=== PATIENT | male | born 1980 | race Caucasian/White ===

== ENCOUNTER 2025-03-17 13:39 | Inpatient (IN) | payer MEDICAID ==
[~2025-03-17] VITALS: Ht 188 cm; Wt 69.7 kg
[~2025-03-17 13:39] MED LIST: CLON-595 PO; LEVO50 PO; LORA1TAB25 PO; PANT-31 PO; QUET25TA PO; SEVE800T39 PO
[2025-03-17 22:20] VITALS: BP 120/85; PULSE 107; RESP 18; TEMP 97.8; O2SAT 96
[2025-03-17] MEDS: ZOLPIDEM TARTRATE 10 MG TABLET PO PRN (23:55)
[2025-03-17] MEDS: OLANZapine 5 MG RAPDIS TABLET PO PRN (23:55)
[2025-03-18] VITALS (11 sets, daily range): BP systolic 111–133; BP diastolic 78–85; PULSE 79–100; RESP 16–18; TEMP 98–99.7; O2SAT 95–98
[2025-03-18 09:40] LABS: CHOL/HDL RATIO 5.9 (4.2-7.3); LDL CHOL (CALC.) 129.0 mg/dL (0-130)
[2025-03-18] MEDS ORDERED: LOPERAMIDE HCL 2 MG CAPSULE PO PRN (14:15)
[2025-03-18] MEDS ORDERED: GABAPENTIN 300 MG CAPSULE PO PRN (14:15)
[2025-03-18] MEDS ORDERED: MELATONIN 5 MG TABLET PO PRN (14:15)
[2025-03-18] MEDS ORDERED: MAGNESIUM HYDROXIDE SUSPENSION 30 ML UDCUP PO PRN (14:15)
[2025-03-18] MEDS ORDERED: MAG HYDROX/ALUMINUM HYD/SIMETH ES 30 ML SUSPENSION UDCUP PO PRN (14:15)
[2025-03-18] MEDS ORDERED: GuaiFENesin/D-METHORPHAN [SUGAR-FREE] 200-20MG/10 ML SYRUP UDCUP PO PRN (14:15)
[2025-03-18] MEDS: TUBERCULIN, PURIFIED PROTEIN DERIVATIVE 5 TU/0.1 ML SYRINGE ID ONE (14:15)
[2025-03-18] MEDS ORDERED: PROMETHAZINE HCL 25 MG TABLET PO PRN (14:15)
[2025-03-18] MEDS: THIAMINE 100 MG TABLET PO SCH (17:29)
[2025-03-18] MEDS: ACAMPROSATE CALCIUM 333 MG DR TABLET PO SCH (17:29)
[2025-03-18] MEDS: LURASIDONE HCL 40 MG TABLET PO SCH (17:29)
[2025-03-18] MEDS: GABAPENTIN 400 MG CAPSULE PO SCH (17:29)
[2025-03-19] VITALS (12 sets, daily range): BP systolic 94–134; BP diastolic 62–85; PULSE 89–100; RESP 17–19; TEMP 97.6–99.1; O2SAT 97–100
[2025-03-19] MEDS: FOLIC ACID 1 MG TABLET PO SCH (09:25)
[2025-03-19] MEDS: DULoxetine HCL 20 MG CAPSULE PO SCH (09:25)
[2025-03-19] MEDS: MULTIVITAMINS WITH MINERALS, THERAPEUTIC TABLET PO SCH (09:25)
[2025-03-19] MEDS: ETHYL ALCOHOL 62% ANTISEPTIC NASAL SANITIZER 0.6 ML AMPUL NASAL SCH (09:26)
[2025-03-19] MEDS: SEVELAMER CARBONATE 800 MG TABLET PO SCH (12:05)
[2025-03-20] MEDS: LEVOTHYROXINE SODIUM 50 MCG TABLET PO SCH (06:40)
[2025-03-20 12:48] VITALS: BP 110/68; PULSE 96; RESP 18; TEMP 98.6; O2SAT 97
[2025-03-20 12:53] VITALS: BP 110/68; PULSE 96; RESP 18; TEMP 98.6; O2SAT 97
[2025-03-20 22:16] VITALS: BP 123/82; PULSE 93; RESP 18; TEMP 98.6; O2SAT 97
[2025-03-21] VITALS (11 sets, daily range): BP systolic 95–137; BP diastolic 58–79; PULSE 80–103; RESP 18–19; TEMP 97.7–98.9; O2SAT 97
[2025-03-21] MEDS: EPOETIN ALFA 10,000 UNITS/ML VIAL SQ SCH (09:00)
[2025-03-21] MEDS ORDERED: DEXTROSE 50%-WATER 25 GM/50 ML SYRINGE IVP PRN (11:45)
[2025-03-21] MEDS: GABAPENTIN 300 MG CAPSULE PO SCH (13:00)
[2025-03-21 16:31] LABS: GLUCOMETER DEV NAME(LOC) 3EX.2; GLUCOSE,POINT OF CARE 118 MG/DL (70-110)
[2025-03-21] MEDS: LURASIDONE HCL 60 MG TABLET PO SCH (17:35)
[2025-03-21] MEDS: INSULIN LISPRO 100 UNITS/ML SQ PRN (18:11)
[2025-03-21 20:16] LABS: GLUCOMETER DEV NAME(LOC) 3EX.2; GLUCOSE,POINT OF CARE 101 MG/DL (70-110)
[2025-03-22 06:06] LABS: GLUCOMETER DEV NAME(LOC) 3EX.2; GLUCOSE,POINT OF CARE 108 MG/DL (70-110)
[2025-03-22] MEDS: DULoxetine HCL 30 MG CAPSULE PO SCH (08:44)
[2025-03-22 11:09] VITALS: BP 104/67; PULSE 92; RESP 17; TEMP 98.8; O2SAT 97
[2025-03-22 11:25] LABS: GLUCOMETER DEV NAME(LOC) 3EX.2; GLUCOSE,POINT OF CARE 106 MG/DL (70-110)
[2025-03-22 11:48] LABS: PLATELET COUNT (AUTO) 527 K/uL (150-450); RED BLOOD CELL COUNT(AUTO) 3.40 MIL/uL (4.50-5.90); RED CELL DISTRIBUTION WIDTH 16.4 % (11.5-14.5); WHITE BLOOD COUNT (AUTO) 11.5 K/uL (4.5-11.0)
[2025-03-22 11:56] LABS: CALCIUM, TOTAL 8.3 mg/dL (8.8-10.5); CREATININE 4.11 mg/dL (0.60-1.30); GLOMERULAR FILTR. RATE CALC 16.0 mL/min (>60); GLUCOSE,RANDOM 102.0 mg/dL (70-110); SODIUM SERUM 132.0 mmol/L (136-145); UREA NITROGEN, BLOOD 48.0 mg/dL (7-18)
[2025-03-22 11:59] LABS: PHOSPHORUS 7.0 mg/dL (2.5-4.9)
[2025-03-22] MEDS: SODIUM ZIRCONIUM CYCLOSILICATE 10 GM POWDER PACKET PO ONE (13:25)
[2025-03-22 17:16] LABS: GLUCOMETER DEV NAME(LOC) 3EX.2; GLUCOSE,POINT OF CARE 114 MG/DL (70-110)
[2025-03-22 20:46] LABS: GLUCOMETER DEV NAME(LOC) 3EX.2; GLUCOSE,POINT OF CARE 94 MG/DL (70-110)
[2025-03-22 22:42] VITALS: BP 114/72; PULSE 86; RESP 18; TEMP 98.7; O2SAT 97
[2025-03-23] VITALS (11 sets, daily range): BP systolic 88–140; BP diastolic 52–82; PULSE 68–102; RESP 18–19; TEMP 98.1–98.5; O2SAT 97–98
[2025-03-23 06:36] LABS: GLUCOMETER DEV NAME(LOC) 3EX.2; GLUCOSE,POINT OF CARE 84 MG/DL (70-110)
[2025-03-23] MEDS: DULoxetine HCL 20 MG CAPSULE PO SCH (08:25)
[2025-03-23 17:10] LABS: GLUCOMETER DEV NAME(LOC) 3EX.2; GLUCOSE,POINT OF CARE 122 MG/DL (70-110)
[2025-03-23 20:26] LABS: GLUCOMETER DEV NAME(LOC) 3EX.2; GLUCOSE,POINT OF CARE 89 MG/DL (70-110)
[2025-03-24] VITALS (16 sets, daily range): BP systolic 113–132; BP diastolic 72–80; PULSE 78–101; RESP 17–19; TEMP 97.5–101.5; O2SAT 96–99
[2025-03-24 06:26] LABS: GLUCOMETER DEV NAME(LOC) 3EX.2; GLUCOSE,POINT OF CARE 88 MG/DL (70-110)
[2025-03-24 11:31] LABS: GLUCOMETER DEV NAME(LOC) 3EX.2; GLUCOSE,POINT OF CARE 93 MG/DL (70-110)
[2025-03-24 16:36] LABS: GLUCOMETER DEV NAME(LOC) 3EX.2; GLUCOSE,POINT OF CARE 105 MG/DL (70-110)
[2025-03-24 20:31] LABS: GLUCOMETER DEV NAME(LOC) 3EX.2; GLUCOSE,POINT OF CARE 105 MG/DL (70-110)
[2025-03-24] MEDS: ACETAMINOPHEN 325 MG TABLET PO PRN (21:54)
[2025-03-24 22:41] LABS: COVID AG,FIA SOURCE NASAL SWAB
[2025-03-24 23:01] LABS: SARS-COV2 (COVID) ANTIGEN,FIA Negative (Negative)
[2025-03-25 01:08] VITALS: BP 112/78; PULSE 87; RESP 18; TEMP 98.4; O2SAT 97
[2025-03-25 01:25] LABS: GLUCOMETER DEV NAME(LOC) 3EX.2; GLUCOSE,POINT OF CARE 91 MG/DL (70-110)
[2025-03-25] MEDS ORDERED: GABAPENTIN 400 MG CAPSULE PO SCH (09:00)
[2025-03-25] MEDS ORDERED: GABAPENTIN 300 MG CAPSULE PO SCH (09:00)
[2025-03-25] MEDS ORDERED: DULoxetine HCL 60 MG CAPSULE PO SCH (09:00)
[2025-03-25] MEDS ORDERED: LURASIDONE HCL 80 MG TABLET PO SCH (17:30)
== END 2025-03-25 02:42 | disposition short-term general hospital (02) | DRG 761 ==
LOC: 3EI 22:37
PROVIDERS: ADMIT Psychiatry & Neurology Psychiatry; ATTEND Psychiatry & Neurology Psychiatry
PROC: GZHZZZZ Group Psychotherapy (ICD-10-PCS; 2025-03-18)
PROC: GZ58ZZZ Individual Psychotherapy, Cognitive-Behavioral (ICD-10-PCS; 2025-03-18)
PROC: 5A1D70Z Performance of Urinary Filtration, Intermittent, Less than 6 Hours Per Day (ICD-10-PCS; principal; 2025-03-19)
PROC: 5A1D70Z Performance of Urinary Filtration, Intermittent, Less than 6 Hours Per Day (ICD-10-PCS; 2025-03-21)
PROC: GZ56ZZZ Individual Psychotherapy, Supportive (ICD-10-PCS; 2025-03-21)
PROC: 5A1D70Z Performance of Urinary Filtration, Intermittent, Less than 6 Hours Per Day (ICD-10-PCS; 2025-03-23)
DX: F25.9 Schizoaffective disorder, unspecified (principal); I12.0 Hypertensive chronic kidney disease with stage 5 chronic kidney disease or end stage renal disease; N18.6 End stage renal disease; D63.1 Anemia in chronic kidney disease; R45.851 Suicidal ideations; E03.9 Hypothyroidism, unspecified; E11.22 Type 2 diabetes mellitus with diabetic chronic kidney disease; F17.200 Nicotine dependence, unspecified, uncomplicated; F32.A Depression, unspecified; Z60.8 Other problems related to social environment; K21.9 Gastro-esophageal reflux disease without esophagitis; Z20.822 Contact with and (suspected) exposure to COVID-19; F41.9 Anxiety disorder, unspecified; Z55.9 Problems related to education and literacy, unspecified; Z59.9 Problem related to housing and economic circumstances, unspecified; Z63.9 Problem related to primary support group, unspecified; Z65.3 Problems related to other legal circumstances; Z74.01 Bed confinement status; Z99.2 Dependence on renal dialysis; Z79.899 Other long term (current) drug therapy
CPT/HCPCS: 80048; 80061; 82962; 83036; 83735; 84100; 84439; 84443; 85025; 86592; 87081; 90935; 97110; 97162; 97166; 97530; 97535; J0885

== ENCOUNTER 2025-03-25 01:16 | Inpatient (IN) | payer OTHER ==
[~2025-03-25] VITALS: Ht 188 cm; Wt 71.1 kg
[2025-03-25] VITALS (14 sets, daily range): BP systolic 103–137; BP diastolic 63–84; PULSE 74–92; RESP 18–20; TEMP 97.9–99.5; O2SAT 97–98
[2025-03-25] MEDS ORDERED: ONDANSETRON HCL 4 MG/2 ML VIAL IVP PRN (06:15)
[2025-03-25] MEDS ORDERED: BISACODYL 10 MG RECTAL RECTAL SUPPOSITORY PR PRN (06:15)
[2025-03-25] MEDS: LEVOTHYROXINE SODIUM 50 MCG TABLET PO SCH (06:43)
[2025-03-25] MEDS: PANTOPRAZOLE SODIUM 40 MG DR TABLET PO SCH (09:40)
[2025-03-25] MEDS: SEVELAMER CARBONATE 800 MG TABLET PO SCH (09:40)
[2025-03-25] MEDS: HEPARIN SODIUM,PORCINE 5,000 UNITS/ML VIAL SQ SCH (09:40)
[2025-03-25] MEDS: DOCUSATE SODIUM 100 MG CAPSULE PO SCH (09:40)
[2025-03-25] MEDS ORDERED: SODIUM CHLORIDE 0.9% 1,000 ML ONE (10:54)
[2025-03-25 11:29] LABS: PLATELET COUNT (AUTO) 478 K/uL (150-450); RED BLOOD CELL COUNT(AUTO) 3.10 MIL/uL (4.50-5.90); RED CELL DISTRIBUTION WIDTH 16.4 % (11.5-14.5); WHITE BLOOD COUNT (AUTO) 10.4 K/uL (4.5-11.0)
[2025-03-25 11:43] LABS: CALCIUM, TOTAL 7.9 mg/dL (8.8-10.5); CREATININE 5.25 mg/dL (0.60-1.30); GLOMERULAR FILTR. RATE CALC 12.0 mL/min (>60); GLUCOSE,RANDOM 112.0 mg/dL (70-110); SODIUM SERUM 132.0 mmol/L (136-145); UREA NITROGEN, BLOOD 62.0 mg/dL (7-18)
[2025-03-25] MEDS: *CLINICAL-LEVOFLOXACIN IVPB DOSING CLINICAL ONE (16:53)
[2025-03-25] MEDS: LEVOFLOXACIN 750 MG/D5% WATER 150 ML IV ONE (18:04)
[2025-03-25 19:10] LABS: COVID AG,FIA SOURCE NASAL SWAB
[2025-03-25 19:28] LABS: INFLUENZA TYPE A NEGATIVE FOR TYPE A (NEGATIVE); INFLUENZA TYPE B NEGATIVE FOR TYPE B (NEGATIVE); SARS-COV2 (COVID) ANTIGEN,FIA Negative (Negative)
[2025-03-26] VITALS (18 sets, daily range): BP systolic 101–135; BP diastolic 63–98; PULSE 77–110; RESP 17–19; TEMP 96.8–100.6; O2SAT 97–100
[2025-03-26] MEDS: FOLIC ACID/VIT B COMPLEX AND C TABLET PO SCH (12:21)
[2025-03-26] MEDS: EPOETIN ALFA 10,000 UNITS/ML 2 ML VIAL SQ SCH (14:45)
[2025-03-26] MEDS: ACETAMINOPHEN 325 MG TABLET PO PRN (17:23)
[2025-03-26] MEDS: LORazepam 2 MG/ML VIAL IVP PRN ×2 (18:03→22:43)
[2025-03-26] MEDS: GABAPENTIN 300 MG CAPSULE PO SCH (21:00)
[2025-03-26] MEDS: MELATONIN 5 MG TABLET PO SCH (21:00)
[2025-03-27] MEDS: MORPHINE SULFATE 4 MG/ML SYRINGE IVP PRN (01:45)
[2025-03-27] MEDS: LORazepam 2 MG/ML VIAL IM ONE (03:28)
[2025-03-27 05:56] LABS: PLATELET COUNT (AUTO) 481 K/uL (150-450); RED BLOOD CELL COUNT(AUTO) 3.26 MIL/uL (4.50-5.90); RED CELL DISTRIBUTION WIDTH 16.9 % (11.5-14.5); WHITE BLOOD COUNT (AUTO) 11.0 K/uL (4.5-11.0)
[2025-03-27 06:14] LABS: ASPARTATE AMINOTRANSFERASE 25.0 U/L (15-37); CALCIUM, TOTAL 8.0 mg/dL (8.8-10.5); CREATININE 3.68 mg/dL (0.60-1.30); GLOMERULAR FILTR. RATE CALC 18.0 mL/min (>60); GLUCOSE,RANDOM 88.0 mg/dL (70-110); SODIUM SERUM 135.0 mmol/L (136-145); TOTAL PROTEIN, SERUM 7.4 g/dL (6.4-8.2); UREA NITROGEN, BLOOD 34.0 mg/dL (7-18)
[2025-03-27] MEDS: DULoxetine HCL 60 MG CAPSULE PO SCH (08:21)
[2025-03-27] MEDS: LURASIDONE HCL 80 MG TABLET PO SCH (08:23)
[2025-03-27 09:07] VITALS: BP 124/84; PULSE 83; RESP 17; TEMP 98.2; O2SAT 98
[2025-03-27] MEDS ORDERED: VANCOMYCIN 1GM/WATER(PEG/NADA) 200 ML IV PRN (12:00)
[2025-03-27 12:13] VITALS: BP 95/58; PULSE 85; RESP 18; TEMP 97.9; O2SAT 98
[2025-03-27] MEDS ORDERED: SODIUM CHLORIDE 0.9% 500 ML IV ONE (12:29)
[2025-03-27] MEDS: VANCOMYCIN 1.5 GM/WATER(PEG) 300 ML IV ONE (12:32)
[2025-03-27 16:32] VITALS: BP 86/61; PULSE 75; RESP 18; TEMP 97.7; O2SAT 97
[2025-03-27] MEDS: LEVOFLOXACIN 500 MG/D5% WATER 100 ML IV SCH (17:05)
[2025-03-27 19:50] VITALS: BP 97/63; PULSE 78; RESP 17; TEMP 97.7; O2SAT 98
[2025-03-27 22:24] LABS: APPEARANCE,URINE CLEAR (CLEAR); GLUCOSE, URINE (UA) 300-500 mg/dL (NEGATIVE); LEUKOCYTE ESTERASE ,URINE NEGATIVE (NEGATIVE); NITRATE,URINE NEGATIVE (NEGATIVE); OCCULT BLOOD,URINE TRACE (NEGATIVE); SPECIFIC GRAVITIY, URINE 1.009 (1.003-1.030)
[2025-03-27 22:38] LABS: SULFOSALICYLIC ACID,URINE 4+ (Negative)
[2025-03-27 22:47] LABS: SQUAMOUS EPITHELIAL CELL,UR Rare /LPF (None Seen)
[2025-03-27 23:57] VITALS: BP 100/67; PULSE 81; RESP 18; TEMP 98.2; O2SAT 95
[2025-03-28 02:28] LABS: INFLUENZA A-RTPCR,COMBO NEGATIVE (NEGATIVE); INFLUENZA B-RTPCR,COMBO NEGATIVE (NEGATIVE); RESPIRATORY SYNCYTIAL VRS-PCR NEGATIVE (NEGATIVE); SARS COVID19 RTPCR, COMBO NEGATIVE (NEGATIVE)
[2025-03-28 20:10] VITALS: BP 95/60; PULSE 79; RESP 18; TEMP 98.1; O2SAT 100
[2025-03-29] MEDS: ZOLPIDEM TARTRATE 5 MG TABLET PO PRN (02:17)
[2025-03-29] MEDS ORDERED: SODIUM CHLORIDE 0.9% 1,000 ML ONE ×2 (05:42→05:43)
[2025-03-29 08:30] LABS: PLATELET COUNT (AUTO) 484 K/uL (150-450); RED BLOOD CELL COUNT(AUTO) 2.99 MIL/uL (4.50-5.90); RED CELL DISTRIBUTION WIDTH 16.8 % (11.5-14.5); WHITE BLOOD COUNT (AUTO) 8.1 K/uL (4.5-11.0)
[2025-03-29 08:43] VITALS: BP 90/60; PULSE 69; RESP 18; TEMP 97.7; O2SAT 97
[2025-03-29 08:44] LABS: CALCIUM, TOTAL 8.0 mg/dL (8.8-10.5); CREATININE 5.74 mg/dL (0.60-1.30); GLOMERULAR FILTR. RATE CALC 11.0 mL/min (>60); GLUCOSE,RANDOM 85.0 mg/dL (70-110); SODIUM SERUM 136.0 mmol/L (136-145); UREA NITROGEN, BLOOD 69.0 mg/dL (7-18)
[2025-03-29] MEDS: MIDODRINE HCL 5 MG TABLET PO ONE (08:45)
[2025-03-29 11:37] VITALS: BP 88/60; PULSE 72; RESP 17; TEMP 97.1; O2SAT 99
[2025-03-29] MEDS: VANCOMYCIN 1GM/WATER(PEG/NADA) 200 ML IV ONE (15:01)
[2025-03-29 16:10] VITALS: BP 95/70; PULSE 79; RESP 18; TEMP 97.5; O2SAT 100
[2025-03-29 20:40] VITALS: BP 104/65; PULSE 83; RESP 18; TEMP 98.2; O2SAT 100
[2025-03-29] MEDS: MIDODRINE HCL 5 MG TABLET PO SCH (21:10)
[2025-03-29] MEDS: HYDROCODONE/ACETAMINOPHEN 5-325 MG TABLET PO PRN (21:30)
[2025-03-30] VITALS (19 sets, daily range): BP systolic 85–109; BP diastolic 54–78; PULSE 66–83; RESP 17–19; TEMP 96.6–98.1; O2SAT 93–100
[2025-03-30 06:30] LABS: PLATELET COUNT (AUTO) 561 K/uL (150-450); RED BLOOD CELL COUNT(AUTO) 3.21 MIL/uL (4.50-5.90); RED CELL DISTRIBUTION WIDTH 16.6 % (11.5-14.5); WHITE BLOOD COUNT (AUTO) 9.5 K/uL (4.5-11.0)
[2025-03-30 06:52] LABS: CREATININE 6.59 mg/dL (0.60-1.30); GLOMERULAR FILTR. RATE CALC 9.0 mL/min (>60); GLUCOSE,RANDOM 82.0 mg/dL (70-110); SODIUM SERUM 135.0 mmol/L (136-145); UREA NITROGEN, BLOOD 79.0 mg/dL (7-18)
[2025-03-30 06:56] LABS: CALCIUM, TOTAL 8.1 mg/dL (8.8-10.5)
[2025-03-30] MEDS ORDERED: ALBUMIN HUMAN 25%-12.5GM/50ML IV BOTTLE ONE (12:00)
[2025-03-30] MEDS: ALBUMIN HUMAN 25%-25GM/100ML 100 ML IV ONE ×2 (12:30→17:51)
[2025-03-30] MEDS: CALCIUM GLUCONATE 100 MG/ML 10 ML IVP ONE (13:57)
[2025-03-30] MEDS: SODIUM ZIRCONIUM CYCLOSILICATE 10 GM POWDER PACKET PO ONE (13:58)
[2025-03-30] MEDS ORDERED: SODIUM CHLORIDE 0.9% 2,000 ML ONE (14:06)
[2025-03-30] MEDS: INSULIN REGULAR, HUMAN 100 UNITS/ML IVP ONE (14:22)
[2025-03-30] MEDS: DEXTROSE 50%-WATER 25 GM/50 ML SYRINGE IVP ONE (14:23)
[2025-03-30 15:30] LABS: GLUCOMETER DEV NAME(LOC) 5S.1E; GLUCOSE,POINT OF CARE 79 MG/DL (70-110)
[2025-03-30 15:54] LABS: LACTIC ACID 0.4 mmol/L (0.4-2.0)
[2025-03-30] MEDS: VANCOMYCIN 500 MG/WATER(PEG) 100 ML IV ONE (19:29)
[2025-03-30] MEDS: PIPERACILLIN SODIUM/TAZOBACTAM 2.25 GM in DEXTROSE 5%-WATER 50 ML IV SCH (21:39)
[2025-03-30] MEDS: LACTULOSE 20 GM/30 ML SOLUTION UDCUP PO SCH (23:44)
[2025-03-31] VITALS (7 sets, daily range): BP systolic 104–141; BP diastolic 63–89; PULSE 81–88; RESP 17–19; TEMP 97.7–98.8; O2SAT 96–99
[2025-03-31 06:39] LABS: PLATELET COUNT (AUTO) 572 K/uL (150-450); RED BLOOD CELL COUNT(AUTO) 3.08 MIL/uL (4.50-5.90); RED CELL DISTRIBUTION WIDTH 16.5 % (11.5-14.5); WHITE BLOOD COUNT (AUTO) 8.3 K/uL (4.5-11.0)
[2025-03-31 06:55] LABS: ASPARTATE AMINOTRANSFERASE 31.0 U/L (15-37); CALCIUM, TOTAL 7.9 mg/dL (8.8-10.5); CREATININE 3.85 mg/dL (0.60-1.30); GLOMERULAR FILTR. RATE CALC 17.0 mL/min (>60); GLUCOSE,RANDOM 115.0 mg/dL (70-110); SODIUM SERUM 136.0 mmol/L (136-145); TOTAL PROTEIN, SERUM 7.2 g/dL (6.4-8.2); UREA NITROGEN, BLOOD 44.0 mg/dL (7-18)
[2025-03-31] MEDS ORDERED: IOHEXOL 350 MG/ML 100 ML VIAL ONE (11:42)
[2025-03-31] MEDS ORDERED: SODIUM CHLORIDE 0.9% 100 ML ONE (11:42)
[2025-03-31] MEDS ORDERED: ALBUMIN HUMAN 25%-12.5GM/50ML IV BOTTLE ONE (12:00)
[2025-04-01] VITALS (15 sets, daily range): BP systolic 91–138; BP diastolic 62–99; PULSE 70–101; RESP 16–18; TEMP 97.6–99.3; O2SAT 98–100
[2025-04-01] MEDS ORDERED: SODIUM CHLORIDE 0.9% 2,000 ML ONE (03:59)
[2025-04-01] MEDS: ALBUMIN HUMAN 25%-25GM/100ML 100 ML IV PRN (05:42)
[2025-04-01 07:06] LABS: ASPARTATE AMINOTRANSFERASE 36 U/L (15-37); CALCIUM, TOTAL 7.9 mg/dL (8.8-10.5); CREATININE 0.97 mg/dL (0.60-1.30); GLOMERULAR FILTR. RATE CALC > 60 mL/min (>60); GLUCOSE,RANDOM 85 mg/dL (70-110); SODIUM SERUM 141 mmol/L (136-145); TOTAL PROTEIN, SERUM 6.5 g/dL (6.4-8.2); UREA NITROGEN, BLOOD 22 mg/dL (7-18)
[2025-04-01] MEDS: LURASIDONE HCL 40 MG TABLET PO SCH (08:49)
[2025-04-01 14:34] LABS: PLATELET COUNT (AUTO) 633 K/uL (150-450); RED BLOOD CELL COUNT(AUTO) 3.26 MIL/uL (4.50-5.90); RED CELL DISTRIBUTION WIDTH 17.0 % (11.5-14.5); WHITE BLOOD COUNT (AUTO) 8.3 K/uL (4.5-11.0)
[2025-04-01] MEDS: VANCOMYCIN 500 MG/WATER(PEG) 100 ML IV ONE (14:35)
[2025-04-02 03:26] VITALS: BP 133/76; PULSE 79; RESP 18; TEMP 98.4; O2SAT 98
[2025-04-02 07:20] VITALS: BP 145/90; PULSE 76; RESP 18; TEMP 98; O2SAT 97
[2025-04-02] MEDS ORDERED: SODIUM CHLORIDE 0.9% 250 ML IV ONE (11:56)
[2025-04-02 12:02] VITALS: BP 133/79; PULSE 76; RESP 18; TEMP 98.4; O2SAT 100
[2025-04-02 16:04] VITALS: BP 157/83; PULSE 74; RESP 18; TEMP 98.4; O2SAT 98
[2025-04-02 19:52] VITALS: BP 139/81; PULSE 80; RESP 18; TEMP 98.4; O2SAT 98
[2025-04-02 23:41] VITALS: BP 130/85; PULSE 81; RESP 18; TEMP 97.9; O2SAT 98
[2025-04-03 04:19] VITALS: BP 129/72; PULSE 84; RESP 18; TEMP 97.7; O2SAT 97
[2025-04-03 07:49] VITALS: BP 140/90; PULSE 79; RESP 18; TEMP 98; O2SAT 98
[2025-04-03 12:11] VITALS: BP 136/82; PULSE 74; RESP 18; TEMP 97.7; O2SAT 98
[2025-04-03] MEDS: LORazepam 2 MG/ML VIAL IVP ONE (13:18)
[2025-04-03 15:38] VITALS: BP 128/82; PULSE 82; RESP 18; TEMP 97.7; O2SAT 100
[2025-04-03 20:25] VITALS: BP 132/93; PULSE 85; RESP 16; TEMP 98.4; O2SAT 97
[2025-04-03 23:02] VITALS: BP 136/97; PULSE 90; RESP 18; TEMP 97.7; O2SAT 97
[2025-04-04] VITALS (13 sets, daily range): BP systolic 108–158; BP diastolic 78–100; PULSE 79–102; RESP 18–20; TEMP 97.5–98.1; O2SAT 97–98
[2025-04-04] MEDS: ZOLPIDEM TARTRATE 5 MG TABLET PO PRN (00:05)
[2025-04-04 13:03] LABS: CALCIUM, TOTAL 8.7 mg/dL (8.8-10.5); CREATININE 6.09 mg/dL (0.60-1.30); GLOMERULAR FILTR. RATE CALC 10.0 mL/min (>60); GLUCOSE,RANDOM 121.0 mg/dL (70-110); SODIUM SERUM 135.0 mmol/L (136-145); UREA NITROGEN, BLOOD 66.0 mg/dL (7-18)
[2025-04-04 13:26] LABS: PHOSPHORUS 6.9 mg/dL (2.5-4.9)
[2025-04-04] MEDS: CALCIUM GLUCONATE 100 MG/ML 10 ML IVP ONE (13:55)
[2025-04-04] MEDS: DEXTROSE 50%-WATER 25 GM/50 ML SYRINGE IVP ONE (13:57)
[2025-04-04] MEDS: SODIUM ZIRCONIUM CYCLOSILICATE 10 GM POWDER PACKET PO ONE (13:57)
[2025-04-04] MEDS: INSULIN REGULAR, HUMAN 100 UNITS/ML IVP ONE (14:00)
[2025-04-04] MEDS: SODIUM POLYSTYRENE SULFONATE 15 GM/60 ML SUSPENSION BOTTLE PO ONE (15:34)
[2025-04-04 17:06] LABS: CALCIUM, TOTAL 8.4 mg/dL (8.8-10.5); CREATININE 5.06 mg/dL (0.60-1.30); GLOMERULAR FILTR. RATE CALC 12.0 mL/min (>60); GLUCOSE,RANDOM 88.0 mg/dL (70-110); SODIUM SERUM 135.0 mmol/L (136-145); UREA NITROGEN, BLOOD 55.0 mg/dL (7-18)
[2025-04-04 20:01] LABS: GLUCOMETER DEV NAME(LOC) 6N.1C; GLUCOSE,POINT OF CARE 134 MG/DL (70-110)
[2025-04-05] VITALS (9 sets, daily range): BP systolic 117–156; BP diastolic 79–97; PULSE 84–99; RESP 17–18; TEMP 96.8–98.3; O2SAT 96–98
[2025-04-05] MEDS: SODIUM ZIRCONIUM CYCLOSILICATE 10 GM POWDER PACKET PO ONE (02:01)
[2025-04-05] MEDS: DULoxetine HCL 30 MG CAPSULE PO SCH (08:01)
[2025-04-05] MEDS ORDERED: SODIUM CHLORIDE 0.9% 2,000 ML ONE (09:22)
[2025-04-05 12:35] LABS: GLUCOMETER DEV NAME(LOC) 6N.2C; GLUCOSE,POINT OF CARE 85 MG/DL (70-110)
[2025-04-05 12:41] LABS: CALCIUM, TOTAL 8.7 mg/dL (8.8-10.5); CREATININE 2.51 mg/dL (0.60-1.30); GLOMERULAR FILTR. RATE CALC 28.0 mL/min (>60); GLUCOSE,RANDOM 102.0 mg/dL (70-110); SODIUM SERUM 137.0 mmol/L (136-145); UREA NITROGEN, BLOOD 20.0 mg/dL (7-18)
[2025-04-05] MEDS: VANCOMYCIN 500 MG/WATER(PEG) 100 ML IV ONE (15:29)
[2025-04-05 23:36] LABS: GLUCOMETER DEV NAME(LOC) 6N.1C; GLUCOSE,POINT OF CARE 123 MG/DL (70-110)
[2025-04-06 08:00] VITALS: BP 157/93; PULSE 89; RESP 20; TEMP 98.2; O2SAT 99
[2025-04-06 09:28] LABS: PLATELET COUNT (AUTO) 599 K/uL (150-450); RED BLOOD CELL COUNT(AUTO) 3.34 MIL/uL (4.50-5.90); RED CELL DISTRIBUTION WIDTH 18.1 % (11.5-14.5); WHITE BLOOD COUNT (AUTO) 6.4 K/uL (4.5-11.0)
[2025-04-06 09:52] LABS: CALCIUM, TOTAL 8.6 mg/dL (8.8-10.5); CREATININE 4.41 mg/dL (0.60-1.30); GLOMERULAR FILTR. RATE CALC 15.0 mL/min (>60); GLUCOSE,RANDOM 88.0 mg/dL (70-110); SODIUM SERUM 139.0 mmol/L (136-145); UREA NITROGEN, BLOOD 36.0 mg/dL (7-18)
[2025-04-06 16:00] VITALS: BP 166/97; PULSE 88; RESP 20; TEMP 97.2; O2SAT 98
[2025-04-06] MEDS: LORazepam 2 MG/ML VIAL IVP ONE (17:12)
[2025-04-06 20:05] VITALS: BP 154/96; PULSE 86; RESP 18; TEMP 98.5; O2SAT 98
[2025-04-07] VITALS (8 sets, daily range): BP systolic 141–161; BP diastolic 82–108; PULSE 78–96; RESP 17–18; TEMP 96.8–98; O2SAT 97–98
[2025-04-07] MEDS ORDERED: SODIUM CHLORIDE 0.9% 1,000 ML ONE ×2 (10:45)
[2025-04-07] MEDS ORDERED: CLON-592 PO (13:24)
[2025-04-07] MEDS ORDERED: DULO30CA62 PO (13:24)
[2025-04-07] MEDS ORDERED: [UNRECOGNIZED DRUG - CODE] SQ (13:25)
[2025-04-07] MEDS ORDERED: LURA40TA2 PO (13:26)
[2025-04-07] MEDS ORDERED: QUET25TA PO (13:27)
[2025-04-07] MEDS ORDERED: ACET-2247 PO (13:30)
[2025-04-07] MEDS ORDERED: VANC1IV IV (13:35)
[2025-04-07] MEDS: VANCOMYCIN 1GM/WATER(PEG/NADA) 200 ML IV ONE (14:47)
== END 2025-04-07 16:35 | DRG 720 ==
LOC: 4E 01:16 → 5N 21:54 → 6S 04-03 22:44
PROVIDERS: ADMIT Internal Medicine; ATTEND Internal Medicine
PROC: 5A1D70Z Performance of Urinary Filtration, Intermittent, Less than 6 Hours Per Day (ICD-10-PCS; principal; 2025-03-25)
PROC: 5A1D70Z Performance of Urinary Filtration, Intermittent, Less than 6 Hours Per Day (ICD-10-PCS; 2025-03-26)
PROC: 5A1D70Z Performance of Urinary Filtration, Intermittent, Less than 6 Hours Per Day (ICD-10-PCS; 2025-03-30)
PROC: 5A1D70Z Performance of Urinary Filtration, Intermittent, Less than 6 Hours Per Day (ICD-10-PCS; 2025-04-01)
PROC: 5A1D70Z Performance of Urinary Filtration, Intermittent, Less than 6 Hours Per Day (ICD-10-PCS; 2025-04-04)
PROC: 5A1D70Z Performance of Urinary Filtration, Intermittent, Less than 6 Hours Per Day (ICD-10-PCS; 2025-04-05)
PROC: 5A1D70Z Performance of Urinary Filtration, Intermittent, Less than 6 Hours Per Day (ICD-10-PCS; 2025-04-07)
DX: A41.02 Sepsis due to Methicillin resistant Staphylococcus aureus (principal); I26.90 Septic pulmonary embolism without acute cor pulmonale; J90 Pleural effusion, not elsewhere classified; J69.0 Pneumonitis due to inhalation of food and vomit; M46.26 Osteomyelitis of vertebra, lumbar region; G93.41 Metabolic encephalopathy; I12.0 Hypertensive chronic kidney disease with stage 5 chronic kidney disease or end stage renal disease; D63.1 Anemia in chronic kidney disease; L02.212 Cutaneous abscess of back [any part, except buttock and flank]; Z20.822 Contact with and (suspected) exposure to COVID-19; N18.6 End stage renal disease; F25.9 Schizoaffective disorder, unspecified; E87.5 Hyperkalemia; E11.22 Type 2 diabetes mellitus with diabetic chronic kidney disease; E03.9 Hypothyroidism, unspecified; R45.851 Suicidal ideations; N25.81 Secondary hyperparathyroidism of renal origin; M46.46 Discitis, unspecified, lumbar region; B95.62 Methicillin resistant Staphylococcus aureus infection as the cause of diseases classified elsewhere; J98.11 Atelectasis; M89.8X8 Other specified disorders of bone, other site; R14.0 Abdominal distension (gaseous); R16.2 Hepatomegaly with splenomegaly, not elsewhere classified; K59.00 Constipation, unspecified; R59.0 Localized enlarged lymph nodes; T50.995A Adverse effect of other drugs, medicaments and biological substances, initial encounter; Y92.89 Other specified places as the place of occurrence of the external cause; Z99.3 Dependence on wheelchair; Z79.899 Other long term (current) drug therapy; Z99.2 Dependence on renal dialysis
CPT/HCPCS: 70450; 71045; 71260; 72148; 72193; 74160; 78806; 80048; 80053; 80202; 81001; 81002; 82140; 82962; 83605; 83735; 84100; 84132; 84439; 84443; 85025; 87040; 87077; 87081; 87186; 87205; 87340; 87637; 87804; 90935; 93306; 97110; 97163; 97166; 97530; 97535; A9547; G0378; J0610; J0885; J1200; J1630; J1644; J1815; J1956; J2060; J2270; J2543; J7030; J7040; J7050; J7060; P9046; P9047; 36415-L1; 36415-TC

== ENCOUNTER 2025-04-08 14:08 | Emergency (ER) | payer OTHER ==
[~2025-04-08] VITALS: Ht 188 cm; Wt 80.0 kg
[~2025-04-08 14:08] MED LIST changes: +ACET-2247 PO; +CLON-592 PO; -CLON-595 PO; +DULO30CA62 PO; -LORA1TAB25 PO; +LURA40TA2 PO; +VANC1IV IV; +[UNRECOGNIZED DRUG - CODE] SQ
[2025-04-08 14:40] VITALS: TEMP 97.7
[2025-04-08 19:22] VITALS: BP 149/89; PULSE 83; RESP 18; O2SAT 99
== END 2025-04-08 21:52 ==
LOC: EMS 14:08
DX: F25.9 Schizoaffective disorder, unspecified (principal); R45.1 Restlessness and agitation; Z98.890 Other specified postprocedural states; Z79.899 Other long term (current) drug therapy
CPT/HCPCS: 99284; Z7502

== ENCOUNTER 2025-04-10 14:13 | Inpatient (IN) | payer OTHER ==
[~2025-04-10] VITALS: Ht 175.3 cm; Wt 69.9 kg
[2025-04-10 17:40] LABS: PLATELET COUNT (AUTO) 578 K/uL (150-450); RED BLOOD CELL COUNT(AUTO) 3.45 MIL/uL (4.50-5.90); RED CELL DISTRIBUTION WIDTH 18.5 % (11.5-14.5); WHITE BLOOD COUNT (AUTO) 11.6 K/uL (4.5-11.0)
[2025-04-10] MEDS: LORazepam 2 MG/ML VIAL IM ONE (17:51)
[2025-04-10 18:01] LABS: ERYTHROCYTE SEDIMENTATION RATE 62 MM/HR (0-15)
[2025-04-10 18:04] LABS: CALCIUM, TOTAL 8.3 mg/dL (8.8-10.5); CREATININE 7.33 mg/dL (0.60-1.30); GLOMERULAR FILTR. RATE CALC 8 mL/min (>60); GLUCOSE,RANDOM 88 mg/dL (70-110); SODIUM SERUM 136 mmol/L (136-145); UREA NITROGEN, BLOOD 81 mg/dL (7-18)
[2025-04-10 18:14] LABS: LACTIC ACID 0.8 mmol/L (0.4-2.0); TROPONIN I-HIGH SENSITIVITY 18 ng/L (<76)
[2025-04-10] MEDS: INSULIN REGULAR, HUMAN 100 UNITS/ML IVP ONE (19:29)
[2025-04-10] MEDS: CALCIUM GLUCONATE 100 MG/ML 10 ML IVP ONE (19:29)
[2025-04-10] MEDS: SODIUM ZIRCONIUM CYCLOSILICATE 10 GM POWDER PACKET PO ONE (19:29)
[2025-04-10] MEDS: DEXTROSE 50%-WATER 25 GM/50 ML SYRINGE IVP ONE (19:29)
[2025-04-10] MEDS: SODIUM BICARBONATE [ADULT] 8.4% 50 MEQ/50 ML SYRINGE IVP ONE (19:29)
[2025-04-10] MEDS ORDERED: MAGNESIUM HYDROXIDE SUSPENSION 30 ML UDCUP PO PRN (21:15)
[2025-04-10] MEDS ORDERED: BISACODYL 10 MG RECTAL RECTAL SUPPOSITORY PR PRN (21:15)
[2025-04-10] MEDS ORDERED: ACETAMINOPHEN 325 MG TABLET PO PRN (21:15)
[2025-04-10] MEDS ORDERED: ONDANSETRON HCL 4 MG/2 ML VIAL IVP PRN (21:15)
[2025-04-10] MEDS: VANCOMYCIN 1.5 GM/WATER(PEG) 300 ML IV ONE (22:46)
[2025-04-10] MEDS: HEPARIN SODIUM,PORCINE 5,000 UNITS/ML VIAL SQ SCH (23:44)
[2025-04-11] VITALS (12 sets, daily range): BP systolic 112–180; BP diastolic 60–98; PULSE 85–99; RESP 17–18; TEMP 97.5–98.6; O2SAT 96–100
[2025-04-11] MEDS: ZOLPIDEM TARTRATE 5 MG TABLET PO PRN (01:06)
[2025-04-11] MEDS ORDERED: VANCOMYCIN 1GM/WATER(PEG/NADA) 200 ML IV PRN (04:00)
[2025-04-11] MEDS: LEVOTHYROXINE SODIUM 50 MCG TABLET PO SCH (06:38)
[2025-04-11] MEDS ORDERED: SEVELAMER CARBONATE 800 MG TABLET PO SCH (08:00)
[2025-04-11] MEDS: DULoxetine HCL 30 MG CAPSULE PO SCH (08:47)
[2025-04-11] MEDS: LURASIDONE HCL 40 MG TABLET PO SCH (08:47)
[2025-04-11] MEDS: SEVELAMER CARBONATE 800 MG TABLET PO SCH (08:47)
[2025-04-11] MEDS: PANTOPRAZOLE SODIUM 40 MG DR TABLET PO SCH (08:49)
[2025-04-11] MEDS: DOCUSATE SODIUM 100 MG CAPSULE PO SCH (08:53)
[2025-04-11] MEDS: MORPHINE SULFATE 4 MG/ML SYRINGE IVP PRN (12:41)
[2025-04-11 15:54] LABS: PLATELET COUNT (AUTO) 489 K/uL (150-450); RED BLOOD CELL COUNT(AUTO) 3.15 MIL/uL (4.50-5.90); RED CELL DISTRIBUTION WIDTH 18.4 % (11.5-14.5); WHITE BLOOD COUNT (AUTO) 8.0 K/uL (4.5-11.0)
[2025-04-11 16:00] LABS: CALCIUM, TOTAL 7.4 mg/dL (8.8-10.5); CREATININE 5.05 mg/dL (0.60-1.30); GLOMERULAR FILTR. RATE CALC 13.0 mL/min (>60); GLUCOSE,RANDOM 114.0 mg/dL (70-110); SODIUM SERUM 133.0 mmol/L (136-145); UREA NITROGEN, BLOOD 54.0 mg/dL (7-18)
[2025-04-11] MEDS: LORazepam 2 MG/ML VIAL IVP ONE (17:04)
[2025-04-11] MEDS ORDERED: SODIUM CHLORIDE 0.9% 250 ML IV ONE (18:41)
[2025-04-11] MEDS: VANCOMYCIN 500 MG/WATER(PEG) 100 ML IV ONE (19:24)
[2025-04-12] VITALS: BP 124/96; PULSE 84; RESP 18; TEMP 98.6; O2SAT 98
[2025-04-12 04:00] VITALS: BP 126/96; PULSE 88; RESP 18; TEMP 97.6; O2SAT 97
[2025-04-12 08:00] VITALS: BP 122/86; PULSE 82; RESP 19; TEMP 98.2; O2SAT 96
[2025-04-12] MEDS: HYDROCODONE/ACETAMINOPHEN 5-325 MG TABLET PO PRN (09:32)
[2025-04-12] MEDS: LURASIDONE HCL 60 MG TABLET PO SCH (09:33)
[2025-04-12] MEDS: DULoxetine HCL 20 MG CAPSULE PO SCH (09:34)
[2025-04-12 12:00] VITALS: BP 128/92; PULSE 89; RESP 20; TEMP 98; O2SAT 97
[2025-04-12 14:16] LABS: PLATELET COUNT (AUTO) 461 K/uL (150-450); RED BLOOD CELL COUNT(AUTO) 3.28 MIL/uL (4.50-5.90); RED CELL DISTRIBUTION WIDTH 19.0 % (11.5-14.5); WHITE BLOOD COUNT (AUTO) 7.2 K/uL (4.5-11.0)
[2025-04-12 14:27] LABS: CALCIUM, TOTAL 6.9 mg/dL (8.8-10.5); CREATININE 5.09 mg/dL (0.60-1.30); GLOMERULAR FILTR. RATE CALC 12.0 mL/min (>60); GLUCOSE,RANDOM 112.0 mg/dL (70-110); SODIUM SERUM 138.0 mmol/L (136-145); UREA NITROGEN, BLOOD 42.0 mg/dL (7-18)
[2025-04-12 15:22] VITALS: BP 141/93; PULSE 77; RESP 18; TEMP 97.9; O2SAT 100
[2025-04-12 20:53] VITALS: BP 128/74; PULSE 81; RESP 16; TEMP 98.2; O2SAT 97
[2025-04-13] VITALS (9 sets, daily range): BP systolic 135–152; BP diastolic 83–99; PULSE 74–107; RESP 18; TEMP 98.6
[2025-04-13] MEDS: LORazepam 2 MG/ML VIAL IVP PRN (01:32)
[2025-04-13] MEDS ORDERED: PANTOPRAZOLE SODIUM 40 MG DR TABLET PO SCH (09:00)
[2025-04-13] MEDS ORDERED: SODIUM CHLORIDE 0.9% 2,000 ML ONE (10:06)
[2025-04-13 14:15] LABS: CALCIUM, TOTAL 8.3 mg/dL (8.8-10.5); CREATININE 3.13 mg/dL (0.60-1.30); GLOMERULAR FILTR. RATE CALC 22.0 mL/min (>60); GLUCOSE,RANDOM 132.0 mg/dL (70-110); PLATELET COUNT (AUTO) 495 K/uL (150-450); RED BLOOD CELL COUNT(AUTO) 3.38 MIL/uL (4.50-5.90); RED CELL DISTRIBUTION WIDTH 19.0 % (11.5-14.5); SODIUM SERUM 136.0 mmol/L (136-145); UREA NITROGEN, BLOOD 24.0 mg/dL (7-18); WHITE BLOOD COUNT (AUTO) 6.5 K/uL (4.5-11.0)
[2025-04-13 14:18] LABS: BAND NEUTROPHILS % (MANUAL) 0 % (0-5)
[2025-04-13 14:19] LABS: BASOPHILS % (MANUAL) 1 % (0-2); EOSINOPHILS % (MANUAL) 1 % (1-6); LYMPHOCYTES % (MANUAL) 26 % (22-44); MONOCYTES % (MANUAL) 5 % (2-9); SEGMENTED NEUTROPHILS % 67 % (40-70)
[2025-04-13 14:20] LABS: RBC MORPHOLOGY COMMENT NORMAL RBC MORPH
[2025-04-13] MEDS ORDERED: SODIUM CHLORIDE 0.9% 500 ML IV ONE (17:13)
[2025-04-13] MEDS: VANCOMYCIN 500 MG/WATER(PEG) 100 ML IV SCH (17:19)
[2025-04-13] MEDS: EPOETIN ALFA 10,000 UNITS/ML 2 ML VIAL SQ SCH (17:19)
[2025-04-14 04:00] VITALS: BP 110/67; PULSE 76; RESP 18; TEMP 97.7; O2SAT 98
[2025-04-14 10:30] VITALS: BP 146/104; PULSE 89; RESP 18; O2SAT 99
[2025-04-14 16:20] VITALS: BP 174/81; PULSE 83; RESP 18; TEMP 98.2; O2SAT 98
[2025-04-14] MEDS: ACETAMINOPHEN 500 MG TABLET PO SCH (17:23)
[2025-04-14] MEDS: GABAPENTIN 100 MG CAPSULE PO SCH (17:23)
[2025-04-14] MEDS: LIDOCAINE 5% TRANSDERMAL PATCH TD SCH (17:24)
[2025-04-14 20:05] VITALS: BP 101/75; PULSE 85; RESP 17; TEMP 98.4; O2SAT 99
[2025-04-14] MEDS: -LIDODERM PATCH NOTE- MISC SCH (20:16)
[2025-04-15] VITALS (11 sets, daily range): BP systolic 104–135; BP diastolic 65–92; PULSE 62–105; RESP 18–19; TEMP 98.1–99.3; O2SAT 95–98
[2025-04-15] MEDS: ACETAMINOPHEN 500 MG TABLET PO ONE (10:45)
[2025-04-15] MEDS ORDERED: SODIUM CHLORIDE 0.9% 1,000 ML ONE (10:57)
[2025-04-16] MEDS ORDERED: LURASIDONE HCL 40 MG TABLET PO SCH (08:00)
== END 2025-04-15 18:41 | disposition home or self-care (01) | DRG 425 ==
LOC: EMS 14:35 → EDH 19:44 → 5N 04-11 04:57 → 6S 04-12 12:46
PROVIDERS: ADMIT Internal Medicine; ATTEND Internal Medicine
PROC: 5A1D70Z Performance of Urinary Filtration, Intermittent, Less than 6 Hours Per Day (ICD-10-PCS; principal; 2025-04-11)
PROC: 5A1D70Z Performance of Urinary Filtration, Intermittent, Less than 6 Hours Per Day (ICD-10-PCS; 2025-04-13)
PROC: 5A1D70Z Performance of Urinary Filtration, Intermittent, Less than 6 Hours Per Day (ICD-10-PCS; 2025-04-15)
DX: E87.5 Hyperkalemia (principal); M46.26 Osteomyelitis of vertebra, lumbar region; R78.81 Bacteremia; N18.6 End stage renal disease; I12.0 Hypertensive chronic kidney disease with stage 5 chronic kidney disease or end stage renal disease; D63.1 Anemia in chronic kidney disease; F25.9 Schizoaffective disorder, unspecified; M46.46 Discitis, unspecified, lumbar region; B95.62 Methicillin resistant Staphylococcus aureus infection as the cause of diseases classified elsewhere; M46.40 Discitis, unspecified, site unspecified; E21.3 Hyperparathyroidism, unspecified; Z91.158 Patient's noncompliance with renal dialysis for other reason; E03.9 Hypothyroidism, unspecified; Z53.20 Procedure and treatment not carried out because of patient's decision for unspecified reasons; Z76.5 Malingerer [conscious simulation]; Z79.899 Other long term (current) drug therapy; Z91.148 Patient's other noncompliance with medication regimen for other reason; Z99.2 Dependence on renal dialysis
CPT/HCPCS: 71045; 80048; 80202; 83605; 83690; 84484; 85025; 85651; 87040; 87081; 87340; 90935; 93005; 96372; 96374; 96375; 99285; G0378; J0610; J0885; J1200; J1630; J1644; J1815; J2060; J2270; J3230; J3490; J7030; J7040; J7050; 36415-L1; 36415-TC